=== PATIENT | female | born 1960 | race Caucasian/White ===

== ENCOUNTER → 2017-02-14 | Outpatient (CLI) | payer OTHER ==
--- NOTE | 2017-02-14 10:00 | MM ---
Reason for exam: additional evaluation requested from prior study. Last mammogram was performed 1 year ago. History: Patient is postmenopausal. Physical Findings: Nurse did not find any significant physical abnormalities on exam. MG Diagnostic Mammo w CAD KAYCE Bilateral CC and MLO view(s) were taken. Prior study comparison: February 16, 2016, right breast MG work up mamm w CAD RT. February 02, 2016, bilateral MG screening mammo w CAD. The breast tissue is heterogeneously dense. This may lower the sensitivity of mammography. There is chronic nodularity in the right breast, stable. There is no dominant lesion. No significant new findings when compared with previous films. These results were verbally communicated with the patient and result sheet given to the patient on 02/14/17. ASSESSMENT: Benign, BI-RAD 2 RECOMMENDATION: Routine screening mammogram of both breasts in 1 year.
== END | disposition home or self-care (01) ==
LOC: RADMAMWWP 08:42
PROVIDERS: ATTEND Obstetrics & Gynecology
DX: R92.8 Other abnormal and inconclusive findings on diagnostic imaging of breast (principal)

== ENCOUNTER → 2018-03-13 | Outpatient (CLI) | payer OTHER ==
--- NOTE | 2018-03-18 10:42 | MM ---
Reason for exam: screening (asymptomatic). Last mammogram was performed 1 year and 1 month ago. History: Patient is postmenopausal. Physical Findings: A clinical breast exam by your physician is recommended on an annual basis and results should be correlated with mammographic findings. MG Screening Mammo W/o Cad Bilateral CC and MLO view(s) were taken. Prior study comparison: February 14, 2017, bilateral MG diagnostic mammo w CAD KAYCE. February 16, 2016, right breast MG work up mamm w CAD RT. The breast tissue is heterogeneously dense. This may lower the sensitivity of mammography. Asymmetric breast tissue in the right anterior, stable. There is no discrete abnormality. ASSESSMENT: Negative, BI-RAD 1 RECOMMENDATION: Routine screening mammogram of both breasts in 1 year.
== END | disposition home or self-care (01) ==
LOC: RADMAMWWP 06:53
PROVIDERS: ATTEND Obstetrics & Gynecology
DX: Z12.31 Encounter for screening mammogram for malignant neoplasm of breast (principal)
CPT/HCPCS: 77067

== ENCOUNTER → 2019-04-03 | Outpatient (CLI) | payer OTHER ==
[2019-04-03 08:50] LABS: Basophils # (A) 0.1 k/uL (0-0.2); Basophils % (A) 1 %; Eosinophils # (A) 0.2 k/uL (0-0.7); Eosinophils % (A) 2 %; HCT 45.4 % (34.0-46.0); HGB 14.7 gm/dL (11.4-16.0); Lymphocytes % (A) 35 %; MCH 28.1 pg (25.0-35.0); MCHC 32.5 g/dL (31.0-37.0); MCV 86.6 fL (80.0-100.0); Mean Platelet Volume 6.8; Monocytes # (A) 0.5 k/uL (0-1.0); Monocytes % (A) 6 %; Neutrophils # (A) 4.8 k/uL (1.3-7.7); Neutrophils % (A) 55 %; Platelet Count 308 k/uL (150-450); RBC 5.24 m/uL (3.80-5.40); RDW 13.6 % (11.5-15.5); WBC 8.7 k/uL (3.8-10.6)
== END | disposition home or self-care (01) ==
LOC: LABPAT 08:02
PROVIDERS: ATTEND Obstetrics & Gynecology
DX: Z01.812 Encounter for preprocedural laboratory examination (principal); Z01.818 Encounter for other preprocedural examination
CPT/HCPCS: 36415; 85025; 93005

== ENCOUNTER → 2019-04-20 | Outpatient (CLI) | payer OTHER ==
--- NOTE | 2019-04-20 12:32 | BD ---
EXAMINATION TYPE: Axial Bone Density DATE OF EXAM: 04/20/2019 COMPARISON: 12/31/2012 CLINICAL HISTORY: N 95.1 Height: 66 Weight: 172.2 FRAX RISK QUESTIONS: Alcohol (3 or more units per day): no Family History (Parent hip fracture): no Glucocorticoids (More than 3mos): no (Ex: prednisone, prednisolone, methylprednisolone, dexamethasone, and hydrocortisone). History of Fracture in Adulthood: no Secondary Osteoporosis: 1. Type 1 Diabetes: no 2. Hyperthyroidism: no 3. Menopause before 45: no 4. Malnutrition: no 5. Chronic liver disease: no Rheumatoid Arthritis: no Current Tobacco Use: yes RISK FACTORS HISTORY OF: Family History of Osteoporosis: no Active: yes Diet low in dairy products/other sources of calcium: no Postmenopausal woman: age 54 Lost more than 2 inches in height since high school: no MEDICATIONS: none Additional History: EXAM MEASUREMENTS: Bone mineral densitometry was performed using the POLYBONA System. Bone mineral density as measured about the Lumbar spine is: ----- L1-L4(G/cm2): 1.109 T Score Values are as follows: ----- L2: -1.5 ----- L3: -0.3 ----- L4: -0.5 ----- L1-L4: -0.6 Bone mineral density has: decreased-4.2 % since study of: 12.31.2012 Bone mineral density about the R hip (g/cm2): 0.993 Bone mineral density about the L hip (g/cm2): 0.996 T Score values are as follows: -----R Neck: -0.3 -----L Neck: 0.3 -----R Total: 0.0 -----L Total: 0.1 Bone mineral density has: decreased -1.1 % since study of: 12.31.2012 IMPRESSION: Normal (Values between +1 and -1 indicate normal bone mass). Values approach osteopenia in regards to the lumbar spine. Consider repeating this study in 5 years or sooner if there is some new clinical i ndication. NOTE: T-SCORE=SD OF THE YOUNG ADULT MEAN.
--- NOTE | 2019-04-21 09:53 | MM ---
Reason for exam: screening (asymptomatic). Last mammogram was performed 1 year and 1 month ago. History: Patient is postmenopausal. Physical Findings: A clinical breast exam by your physician is recommended on an annual basis and results should be correlated with mammographic findings. MG Screening Mammo w CAD Bilateral CC and MLO view(s) were taken. Prior study comparison: March 13, 2018, bilateral MG screening mammo w/o cad. February 14, 2017, bilateral MG diagnostic mammo w CAD KAYCE. The breast tissue is heterogeneously dense. This may lower the sensitivity of mammography. No suspicious abnormality. No significant changes when compared with prior studies. ASSESSMENT: Negative, BI-RAD 1 RECOMMENDATION: Routine screening mammogram of both breasts in 1 year.
== END | disposition home or self-care (01) ==
LOC: RADMAMWWP 09:53
PROVIDERS: ATTEND Obstetrics & Gynecology
DX: Z12.31 Encounter for screening mammogram for malignant neoplasm of breast (principal); M85.88 Other specified disorders of bone density and structure, other site; N95.1 Menopausal and female climacteric states
CPT/HCPCS: 77067; 77080

== ENCOUNTER 2019-04-23 05:48 | Day surgery (SDC) | payer OTHER ==
[2019-04-20 08:14] VITALS: BMI 28.2
--- NOTE | 2019-04-22 16:17 | P.HPOB ---
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 Her last Pap smear was performed on March 082018 showed low-grade squamous intraepithelial lesion of the cervix with positive high risk HPV. She underwent a colposcopy on 03/24/2019 that showed negative ECC and biopsies at 8 and 1:00 showing focal koilocytic atypia suggestive of low-grade TED-1. The patient has previously been treated with cryocautery at approximately age 30. She did have a LEEP procedure in March 2012 that did confirm HPV effect with mild dysplasia or TED-1 but negative for high-grade dysplasia. She would like to proceed with a second LEEP due to the history of recurrent low-grade. Obstetrical history: . History of 1 vaginal delivery. Gynecologic history: No other history of sexually transmitted diseases. Social history: She is she is not currently involved with any partner. She currently is working in a factory. Review of Systems Constitutional: Denies chills, Denies fever Eyes: bilateral blurred vision, denies pain Ears, nose, mouth and throat: Denies headache, Denies sore throat Cardiovascular: Reports palpitations, Denies chest pain, Denies shortness of breath Respiratory: Denies cough Gastrointestinal: Denies abdominal pain, Denies diarrhea, Denies nausea, Denies vomiting Genitourinary: Denies dysuria, Denies hematuria Musculoskeletal: Denies myalgias Integumentary: Denies pruritus, Denies rash Neurological: Denies numbness, Denies weakness Psychiatric: Reports anxiety, Denies depression Endocrine: Reports fatigue, Reports flushing Hematologic/Lymphatic: Reports easy bruising Past Medical History Past Medical History: CVA/TIA, Hyperlipidemia Additional Past Medical History / Comment(s): Vitamin D deficiency. abn cells on pap and cervical bx History of Any Multi-Drug Resistant Organisms: None Reported Past Surgical History: Tonsillectomy Additional Past Surgical History / Comment(s): LEEP-03/2012; Removal of cyst from head, d & c hysteroscopy with cervical polyps removed Past Anesthesia/Blood Transfusion Reactions: No Reported Reaction Past Psychological History: Anxiety Smoking Status: Current every day smoker Past Alcohol Use History: Rare Past Drug Use History: None Reported - Past Family History Mother Family Medical History: Hypertension Father Family Medical History: Coronary Artery Disease (CAD) Sister(s) Family Medical History: Cancer Medications and Allergies Home Medications Medication Instructions Recorded Confirmed Type Ascorbic Acid [Vitamin C] 500 mg PO DAILY 05/27/16 04/20/19 History Aspirin EC [Ecotrin Low Dose] 81 mg PO DAILY 05/27/16 04/20/19 History Calcium Carbonate [Calcium] 600 mg PO DAILY 05/27/16 04/20/19 History Cholecalciferol [Vitamin D3 (25 1,000 unit PO DAILY 05/27/16 04/20/19 History Mcg = 1000 Iu)] Vitamin B Complex 1 cap PO DAILY 05/27/16 04/20/19 History Allergies Allergy/AdvReac Type Severity Reaction Status Date / Time naproxen sodium [From Aleve] Allergy Rash/Hives Verified 04/20/19 08:07 strawberry [[place]] AdvReac Swelling Verified 04/20/19 08:07 Perfume AdvReac Mild Rash/Hives Uncoded 04/20/19 08:07 Exam Osteopathic Statement: *. No significant issues noted on an osteopathic structural exam other than those noted in the History and Physical/Consult. HEENT: Within normal limits Heart: Regular rate and rhythm Lungs: Clear to auscultation bilaterally Abdomen: Soft, nontender Pelvic exam: Uterus is anteverted, nontender, with no adnexal masses or tenderness palpated. Cervical os is parous but slightly stenotic and grade 1 cystocele is noted. Extremities: Negative Homans Assessment and Plan (1) TED I (cervical intraepithelial neoplasia I) Status: Chronic Code(s): N87.0 - MILD CERVICAL DYSPLASIA SNOMED Code(s): 807033925 Plan: Proceed with loop electrocautery excision procedure with colposcopy. I have discussed the risks, benefits, and alternative therapies for the above- mentioned procedure and for both sedation/anesthesia as well as necessary blood products administration, if indicated, as they pertain to this patient. The patient has indicated her understanding and acceptance of the risks and procedures discussed.
[~2019-04-23 05:48] MED LIST: Pre Op ABX Message 1 EACH MISC MISCELLANE ONE
[2019-04-23] MEDS ORDERED: METOCLOPRAMIDE 5 MG/ML 2 ML VIAL IVP PRN (06:08)
[2019-04-23] MEDS ORDERED: MORPHINE SULFATE 2 MG/ML SYRINGE IV PRN (06:08)
[2019-04-23] MEDS ORDERED: LACTATED RINGERS 1,000 ML IV SCH (06:08)
[2019-04-23] MEDS ORDERED: ONDANSETRON 4 MG/2 ML VIAL IVP ONE (06:08)
[2019-04-23] MEDS ORDERED: LIDOCAINE 1% 20 ML VIAL (10MG/ML) FOR IV START INTRADERMA PRN (06:08)
[2019-04-23] MEDS ORDERED: DEXAMETHASONE SOD PHOSPHATE 10 MG/ML 1 ML VIAL IV ONE (06:37)
[2019-04-23] MEDS ORDERED: LIDOCAINE 1% INJ 10MG/ML (20 ML MDV) ONE (07:29)
[2019-04-23] MEDS ORDERED: fentaNYL (PF) 50 MCG/ML 2 ML AMP ONE (07:29)
[2019-04-23] MEDS ORDERED: KETOROLAC 30 MG/ML 1 ML VIAL ONE (07:29)
[2019-04-23] MEDS ORDERED: PROPOFOL 10 MG/ML 20 ML VIAL IV ONE (07:29)
[2019-04-23] MEDS ORDERED: MIDAZOLAM 2 MG/2 ML VIAL ONE (07:29)
[2019-04-23] MEDS ORDERED: ePHEDrine SULFATE/0.9% NACL/PF 50 MG/5 ML SYRINGE IV ONE (07:29)
[2019-04-23] MEDS ORDERED: LIDOCAINE 1%-EPI 1:100,000 20 ML VIAL SQ ONE (07:54)
[2019-04-23] MEDS ORDERED: FERRIC SUBSULFATE (MONSELS) JAR TOPICAL ONE (07:54)
[2019-04-23] MEDS ORDERED: BUPIVACAINE (PF) 0.5% 30 ML VIAL SQ ONE ×2 (07:54)
[2019-04-23] MEDS ORDERED: IODINE/POTASS IOD (LUGOLS) 8 ML BTL TOPICAL ONE (07:55)
[2019-04-23] MEDS ORDERED: ACETIC ACID 15 DROPS/ML DROPS MISCELLANE ONE (07:55)
--- NOTE | 2019-04-23 08:15 | P.OP ---
Date of Procedure: 04/23/19 Preoperative Diagnosis: Recurrent low-grade squamous epithelial lesion of the cervix Postoperative Diagnosis: Same Procedure(s) Performed: Loop electrocautery excision procedure with colposcopy Anesthesia: other (Mask general) Surgeon: Lucie Castillo Estimated Blood Loss (ml): 2 Pathology: other (Ectocervix with 12 o'clock position marked with a black suture and 9 o'clock position marked with a white suture, endocervix is a separate piece) Condition: stable Disposition: same day Indications for Procedure: This is a 58-year-old female 1 para 1 who presents for loop electrocautery excision procedure with colposcopy due to recurrent low-grade squamous intraepithelial lesion of the cervix. Her last Pap smear was performed on March 082018 showed low-grade squamous intraepithelial lesion of the cervix with positive high risk HPV. She underwent a colposcopy on 03/24/2019 that showed negative ECC and biopsies at 8 and 1:00 showing focal koilocytic atypia suggestive of low-grade TED-1. The patient has previously been treated with cryocautery at approximately age 30. She did have a LEEP procedure in March 2012 that did confirm HPV effect with mild dysplasia or TED-1 but negative for high-grade dysplasia. She would like to proceed with a second LEEP due to the history of recurrent low-grade. Operative Findings: No specific abnormalities are noted with acetic acid or Lugol solution. Cervical os is slightly stenotic. Description of Procedure: The patient is taken the operating room where she is placed in the dorsal lithotomy position. She is prepped and draped in the normal sterile fashion. Her bladder is drained with a catheter. A coated bivalve speculum was placed in the patient's vagina. Colposcopy is performed using a blue light. The cervix is swabbed with a acetic acid solution of 3%. No abnormalities are visualized. Next the cervix is swabbed with Lugol solution. No abnormalities are again noted. The cervical os is visualized and appears slightly stenotic. Next the cervix was circumferentially injected with a 50-50 mixture of 1% lidocaine with epinephrine and half percent Marcaine using a spinal needle. Approximately 8 mL were used. Next the large loop was used with 35 W of cutting power to swipe from left to right to remove the ectocervix. An additional piece was also removed from the 9:00 border. Next the small loop was used to remove the endocervix. Next Bovie cautery using a ball tip was used to cauterize the bed left behind. Excellent hemostasis is noted. Monsel solution is applied. All instruments are removed from the vagina. Next the 12 o'clock position of the ectocervix is marked with a black suture. The 9 o'clock position is marked with a white suture. The separate piece is the endocervix. All sponge and needle counts are correct. The patient is taken to recovery room in stable condition.
[2019-04-23 08:28] VITALS: TEMP 97.9
[2019-04-23 09:03] VITALS: RESP 18
[2019-04-23 09:33] VITALS: BP 126/82; PULSE 87
== END 2019-04-23 09:36 | disposition home or self-care (01) ==
LOC: OR 05:48
PROVIDERS: ATTEND Obstetrics & Gynecology
DX: N87.0 Mild cervical dysplasia (principal); Z79.82 Long term (current) use of aspirin; Z88.6 Allergy status to analgesic agent; Z91.018 Allergy to other foods; Z91.048 Other nonmedicinal substance allergy status; F17.210 Nicotine dependence, cigarettes, uncomplicated; Z86.73 Personal history of transient ischemic attack (TIA), and cerebral infarction without residual deficits
CPT/HCPCS: 88307; 57461; J2250; J1100; J2405; J2001; J3010; J1885; J2704